=== PATIENT | male | born 1965 | race Caucasian/White ===

== ENCOUNTER → 2017-06-19 | Outpatient (CLI) | payer OTHER | END | disposition home or self-care (01) | LOC: LAB 13:55 → LAB SHORT 13:55 | DX: C44.612 Basal cell carcinoma of skin of right upper limb, including shoulder (principal); C44.519 Basal cell carcinoma of skin of other part of trunk | CPT/HCPCS: 88305 ==

== ENCOUNTER 2019-02-22 07:25 | Emergency (ER) | payer OTHER ==
[~2019-02-22] VITALS: Ht 177.8 cm; Wt 79.4 kg
[2019-02-22] MEDS ORDERED: Aspir 8181 MG PO (07:42)
[2019-02-22 08:08] LABS: BASOPHILS ABSOLUTE AUTO 0.03 K/mm3 (0.00-0.23); BASOPHILS PERCENT AUTO 0 % (0-2); EOSINOPHILS ABSOLUTE AUTO 0.13 K/mm3 (0.00-0.68); EOSINOPHILS PERCENT AUTO 2 % (0-6); Hematocrit 40.3 % (37.0-53.0); Hemoglobin 13.5 g/dL (13.5-17.5); IMMATURE GRAN ABSOLUTE AUTO 0.02 K/mm3 (0.00-0.10); IMMATURE GRAN PERCENT AUTO 0 % (0-1); LYMPHOCYTES ABSOLUTE AUTO 1.86 K/mm3 (0.84-5.20); LYMPHOCYTES PERCENT AUTO 21 % (21-46); MONOCYTES ABSOLUTE AUTO 0.58 K/mm3 (0.16-1.47); MONOCYTES PERCENT AUTO 7 % (4-13); Mean Corpuscular HGB 30.3 pg (26.0-34.0); Mean Corpuscular HGB Conc 33.5 g/dL (31.5-36.5); Mean Corpuscular Volume 91 fL (80-100); Mean Platelet Volume 10.9 fL (9.1-12.4); NEUTROPHILS ABSOLUTE AUTO 6.14 K/mm3 (1.96-9.15); NEUTROPHILS PERCENT AUTO 70 % (41-73); Platelet Count 265 K/mm3 (150-400); RDW Coefficient Variation 13.1 % (11.7-14.2); RDW Standard Deviation 43.6 fL (35.1-46.3); Red Blood Cell Count 4.45 M/mm3 (4.30-5.90); White Blood Cell Count 8.76 K/mm3 (4.00-11.30)
[2019-02-22 08:32] LABS: Alanine Aminotransfer (ALT/SGP 15 U/L (12-78); Albumin, Blood 3.8 g/dL (3.4-5.0); Albumin/Globulin Ratio 1.4 (0.8-1.8); Alk Phos 58 U/L (50-136); Anion Gap 1 mmol/L (6-16); Aspartate Aminotrans (AST/SGOT 14 U/L (12-37); Bilirubin, Total 0.1 mg/dL (0.1-1.0); Blood Urea Nitrogen 17 mg/dL (8-24); Bun/Creatinine Ratio 18.7 (12.0-20.0); CO2, Blood 27 mmol/L (21-32); Calcium, Blood 8.6 mg/dL (8.5-10.1); Chloride, Blood 111 mmol/L (98-108); Creatinine, Blood 0.91 mg/dL (0.60-1.20); Globulin, Blood 2.7 g/dL (2.2-4.0); Glomerular Filtration Rate >60 (60-); Glucose, Blood 111 mg/dL (70-99); Potassium, Blood 4.1 mmol/L (3.5-5.5); Sodium, Blood 139 mmol/L (136-145); Total Protein, Blood 6.5 g/dL (6.4-8.2); Troponin I <0.015 ng/mL (0.000-0.040)
[2019-02-22] MEDS ORDERED: ATOR20 PO (10:24)
[2019-02-22] MEDS ORDERED: Isosorbide Mono30 MG PO (10:24)
[2019-02-22] MEDS ORDERED: LISI20 PO (10:24)
[2019-02-22] MEDS ORDERED: MIRT30ST PO (10:25)
[2019-02-22] MEDS ORDERED: METO25ER PO (10:25)
== END 2019-02-22 11:52 | disposition home or self-care (01) ==
LOC: ER 07:25
PROVIDERS: Emergency Medicine
DX: R07.9 Chest pain, unspecified (principal); Z79.82 Long term (current) use of aspirin; Z79.899 Other long term (current) drug therapy
CPT/HCPCS: 36415; 71046; 80053; 83690; 84484; 85025; 93005; 93010; 99285-25

== ENCOUNTER 2019-03-02 17:48 | Emergency (ER) | payer OTHER ==
[~2019-03-02] VITALS: Ht 175.3 cm; Wt 76.2 kg
[~2019-03-02 17:48] MED LIST: ATOR20 PO; Aspir 8181 MG PO; Isosorbide Mono30 MG PO; LISI20 PO; METO25ER PO; MIRT30ST PO
[2019-03-02 18:28] LABS: BASOPHILS ABSOLUTE AUTO 0.03 K/mm3 (0.00-0.23); BASOPHILS PERCENT AUTO 0 % (0-2); EOSINOPHILS ABSOLUTE AUTO 0.06 K/mm3 (0.00-0.68); EOSINOPHILS PERCENT AUTO 1 % (0-6); Hematocrit 42.4 % (37.0-53.0); Hemoglobin 14.2 g/dL (13.5-17.5); IMMATURE GRAN ABSOLUTE AUTO 0.03 K/mm3 (0.00-0.10); IMMATURE GRAN PERCENT AUTO 0 % (0-1); LYMPHOCYTES ABSOLUTE AUTO 2.35 K/mm3 (0.84-5.20); LYMPHOCYTES PERCENT AUTO 24 % (21-46); MONOCYTES ABSOLUTE AUTO 0.74 K/mm3 (0.16-1.47); MONOCYTES PERCENT AUTO 8 % (4-13); Mean Corpuscular HGB 30.8 pg (26.0-34.0); Mean Corpuscular HGB Conc 33.5 g/dL (31.5-36.5); Mean Corpuscular Volume 92 fL (80-100); Mean Platelet Volume 10.9 fL (9.1-12.4); NEUTROPHILS ABSOLUTE AUTO 6.54 K/mm3 (1.96-9.15); NEUTROPHILS PERCENT AUTO 67 % (41-73); Platelet Count 276 K/mm3 (150-400); RDW Coefficient Variation 13.1 % (11.7-14.2); RDW Standard Deviation 44.3 fL (35.1-46.3); Red Blood Cell Count 4.61 M/mm3 (4.30-5.90); White Blood Cell Count 9.75 K/mm3 (4.00-11.30)
[2019-03-02 18:52] LABS: Alanine Aminotransfer (ALT/SGP 19 U/L (12-78); Albumin, Blood 4.1 g/dL (3.4-5.0); Albumin/Globulin Ratio 1.5 (0.8-1.8); Alk Phos 64 U/L (50-136); Anion Gap 5 mmol/L (6-16); Aspartate Aminotrans (AST/SGOT 13 U/L (12-37); Bilirubin, Total 0.3 mg/dL (0.1-1.0); Blood Urea Nitrogen 23 mg/dL (8-24); Bun/Creatinine Ratio 21.1 (12.0-20.0); CO2, Blood 25 mmol/L (21-32); Calcium, Blood 8.6 mg/dL (8.5-10.1); Chloride, Blood 109 mmol/L (98-108); Creatinine, Blood 1.09 mg/dL (0.60-1.20); Globulin, Blood 2.7 g/dL (2.2-4.0); Glomerular Filtration Rate >60 (60-); Glucose, Blood 102 mg/dL (70-99); Potassium, Blood 4.2 mmol/L (3.5-5.5); Sodium, Blood 139 mmol/L (136-145); Total Protein, Blood 6.8 g/dL (6.4-8.2); Troponin I <0.015 ng/mL (0.000-0.040)
== END 2019-03-02 22:49 | disposition home or self-care (01) ==
LOC: ER 17:48
PROVIDERS: Physician Assistant
DX: R07.9 Chest pain, unspecified (principal); M79.601 Pain in right arm; I25.10 Atherosclerotic heart disease of native coronary artery without angina pectoris; I10 Essential (primary) hypertension; F17.200 Nicotine dependence, unspecified, uncomplicated; Z79.899 Other long term (current) drug therapy; Z79.82 Long term (current) use of aspirin
CPT/HCPCS: 36415; 71046; 80053; 84484; 85025; 93005; 93010; 99285-25

== ENCOUNTER 2019-03-05 00:15 | Observation (INO) | payer OTHER ==
[~2019-03-05] VITALS: Ht 175.3 cm; Wt 76.7 kg
[2019-03-05 00:48] LABS: BASOPHILS ABSOLUTE AUTO 0.04 K/mm3 (0.00-0.23); BASOPHILS PERCENT AUTO 0 % (0-2); EOSINOPHILS ABSOLUTE AUTO 0.11 K/mm3 (0.00-0.68); EOSINOPHILS PERCENT AUTO 1 % (0-6); IMMATURE GRAN ABSOLUTE AUTO 0.02 K/mm3 (0.00-0.10); IMMATURE GRAN PERCENT AUTO 0 % (0-1); LYMPHOCYTES ABSOLUTE AUTO 3.08 K/mm3 (0.84-5.20); LYMPHOCYTES PERCENT AUTO 31 % (21-46); MONOCYTES ABSOLUTE AUTO 0.79 K/mm3 (0.16-1.47); MONOCYTES PERCENT AUTO 8 % (4-13); Mean Corpuscular HGB 30.8 pg (26.0-34.0); Mean Corpuscular HGB Conc 34.1 g/dL (31.5-36.5); Mean Corpuscular Volume 90 fL (80-100); Mean Platelet Volume 10.6 fL (9.1-12.4); NEUTROPHILS ABSOLUTE AUTO 5.95 K/mm3 (1.96-9.15); NEUTROPHILS PERCENT AUTO 60 % (41-73); Platelet Count 284 K/mm3 (150-400); RDW Coefficient Variation 12.7 % (11.7-14.2); RDW Standard Deviation 42.2 fL (35.1-46.3); Red Blood Cell Count 4.87 M/mm3 (4.30-5.90); White Blood Cell Count 9.99 K/mm3 (4.00-11.30)
[2019-03-05 01:10] LABS: Alanine Aminotransfer (ALT/SGP 17 U/L (12-78); Albumin, Blood 4.3 g/dL (3.4-5.0); Albumin/Globulin Ratio 1.3 (0.8-1.8); Alk Phos 72 U/L (50-136); Anion Gap 8 mmol/L (6-16); Aspartate Aminotrans (AST/SGOT 15 U/L (12-37); Bilirubin, Total 0.6 mg/dL (0.1-1.0); Blood Urea Nitrogen 20 mg/dL (8-24); CO2, Blood 24 mmol/L (21-32); Calcium, Blood 8.9 mg/dL (8.5-10.1); Chloride, Blood 107 mmol/L (98-108); Creatinine, Blood 1.05 mg/dL (0.60-1.20); Globulin, Blood 3.2 g/dL (2.2-4.0); Glomerular Filtration Rate >60 (60-); Glucose, Blood 95 mg/dL (70-99); Potassium, Blood 4.1 mmol/L (3.5-5.5); Sodium, Blood 139 mmol/L (136-145); Total Protein, Blood 7.5 g/dL (6.4-8.2); Troponin I <0.015 ng/mL (0.000-0.040)
--- NOTE | 2019-03-05 05:55 | NUR ---
SHIFT SUMMARY/ADMISSION NOTE PT ARRIVED TO UNIT VIA GURNEY AND AMBULATES INDEPENDENTLY TO BED. PT IS A&OX4, ADMITTED FOR CP EARLIER IN DAY. PT REPORTS CP HAS BEEN OCCURING INTERMITTENTLY FOR SEVERAL MONTHS. PAIN IS DESCRIBED AN "ACHEY FEELING" TO THE L CHEST, CAUSING DIAPHORESIS AND SOB. PT TO HAVE HEART CATH PLACED PER DR ORTA, CONSULT CALLED. NPO TONIGHT. NEG TROPONIN, EKG WNL. TELE IN PLACE; SINUS JANE @ 55 BPM PER MOLD TOOLING TECHNICIAN MITCHEL. NO OTHER CHANGES TO REPORT. WILL CONT TO MONITOR AND PROVIDE CARE UNTIL PRESUMED BY ONCOMING RN.
--- NOTE | 2019-03-05 08:27 | NUR ---
PATIENT DID NOT EAT BREAKFAST THIS SHIFT DUE TO BEING NPO AT THIS TIME.
--- NOTE | 2019-03-05 13:31 | NUR ---
Echocardiogram completed.
--- NOTE | 2019-03-05 13:38 | NUR ---
PATIENT DID NOT EAT LUNCH THIS SHIFT DUE TO BEING NPO AT THIS TIME.
--- NOTE | 2019-03-05 18:35 | NUR ---
SHIFT SUMMARY PATIENT A&0 X4, TALKATIVE AND COOPERTIVE WITH CARE. VSS, NSR ON TELE. DENIES SOB OR DIAPHORESIS BUT STATES HE HAS PALPITATIONS AND INTERMITTENT MODERATE RADIATING STABBING L CHEST PAIN, IT IS TOLERABLE AND NOT GETTING WORSE THOUGH. HE ALSO C/O OF A HEADACHE, TYLENOL GIVEN WITH SOME RELIEF. LUNGS CTA. PT INDEPENDENT IN ROOM. IN ROOM MOST OF DAY. DR ORTA SPOKE WITH PATIENT TODAY. [facility] CALLED THIS AFTERNOON AND STATED THE PATIENT'S PROCEDURE WILL HAVE TO BE PUSHED TO TOMORROW. REGULAR DIET ORDERED FOR TONIGHT, WILL BE NPO AT MIDNIGHT.
--- NOTE | 2019-03-05 18:42 | NUR ---
Spiritual Care inital visit: Met with Sp and his SO, Marisel at bedside. Lengthy visit as both detailed for me their history of homelessness. They [place] lived[place] in [place] in [place] along [place] [facility] [place]. Recently, both found hope and peace through a shinto community. For the past 2 years, their life has improved. Sp is now recieving SSD benefits and Marisel is working part-time. They have also found housing. Facilitated life review and exploration of naila in the midst of suffering. Both pt and spouse responded well to prayer and gentle veterans' counselor. Sp admits to feeling nervous about upcoming proceedure. Assured his of excellent care and attention. [facility] will remain available.
--- NOTE | 2019-03-06 05:16 | NUR ---
SHIFT SUMMARY PT REPORTS HAVING CONSTANT, DULL CHEST PAIN TO THE L CHEST. DOES NOT RADIATE. IS NO ALLEVIATED OR WORSENED BY ANYTHING. DOES NOT WORSEN WITH BREATHING, AND PT IS NOT DIAPHORETIC. PT REPORTS THIS PAIN HAS BEEN PRESENT SINCE SUMMER. PT NPO SINCE MIDNIGHT FOR L HEART CATH PER DR ORTA. TELE IN PLACE, NO EVENTS, NSR @ 70 BPM. WILL CONT TO MONITOR AND PROVIDE CARE UNTIL PRESUMED BY ONCOMING RN.
--- NOTE | 2019-03-06 09:40 | NUR ---
TRANSFER PATIENT TAKEN FROM ROOM BY SURGICAL STAFF AT 0855. BLOOD CONSENT SIGNED. NO CHANGE IN PATIENT'S CONDITION. PT GIVEN SIPS OF WATER WITH ASPIRIN AND LISINOPRIL. ALL PT BELONGINGS REMOVED FROM ROOM BY SIGNIFICANT OTHER. BROADCAST OPERATIONS TECHNICIAN NOTIFIED.
--- NOTE | 2019-03-06 10:15 | NUR ---
PT TO ROOM 1 FROM [facility]. BEDSIDE REPORT RECEIVED FROM [facility] STAFF. IVF STARTED TO 20G IN R AC. PRESSURE DEVICE TO RIGHT RADIAL AREA. TELE IN PLACE. PT ALERT AND ORIENTED. NO STENTS PLACED. PT DENIES CP, DENIES SOB.
--- NOTE | 2019-03-06 11:26 | NUR ---
DR COPPOLATRATE AT BEDSIDE.
--- NOTE | 2019-03-06 12:15 | NUR ---
TR BAND DEFLATED 2ML. PT FAITH WELL.
--- NOTE | 2019-03-06 14:34 | NUR ---
TR band is fully deflated. There is no bleeding, no evidence of hematoma, and the pt denies any pain or discomfort. TR band left in place, white immobilizer board is in place. Good cap refill and good spo2 measured on the index finger of the right hand.
[2019-03-06] MEDS ORDERED: ACET325 PO (15:50)
[2019-03-06] MEDS ORDERED: MIRALAX17 GM PO (15:51)
--- NOTE | 2019-03-06 16:25 | NUR ---
PT DC REVIEWED. TELE REMOVED. PT GETTING DRESSED. RIDE TO REPORT CLERK PT WILL BE HERE AT APPROX 1700.
--- NOTE | 2019-03-06 16:50 | NUR ---
IV REMOVED. DRESSING PLACED. SLING PLACED. PT HAS NO QUESTIONS RE DC. ASSISTED INTO FOR DC.
== END 2019-03-06 16:53 | disposition home or self-care (01) ==
LOC: ER 00:15 → MEDS 00:16 → ERHOLD 00:16 → MEDS 04:14 → PCU 03-06 10:18
PROVIDERS: Emergency Medicine; ADMIT Hospitalist
DX: I25.119 Atherosclerotic heart disease of native coronary artery with unspecified angina pectoris (principal); I07.1 Rheumatic tricuspid insufficiency; R00.2 Palpitations; I10 Essential (primary) hypertension; E78.5 Hyperlipidemia, unspecified; J45.909 Unspecified asthma, uncomplicated; C44.91 Basal cell carcinoma of skin, unspecified; G43.909 Migraine, unspecified, not intractable, without status migrainosus; F32.9 Major depressive disorder, single episode, unspecified; F41.9 Anxiety disorder, unspecified; Z79.899 Other long term (current) drug therapy; Z79.82 Long term (current) use of aspirin
CPT/HCPCS: 36415; 71046; 80053; 83690; 83880; 84484; 85025; 93005; 93010; 93308; 93321; 93454; 99152; 99153; 99285-25; A9270; C1769; C1894; G0378; J1644; J1650; J2250; J3010; J7030; Q9967

== ENCOUNTER 2020-07-07 08:09 | Day surgery (SDC) | payer OTHER ==
[~2020-07-07] VITALS: Ht 177.8 cm; Wt 70.1 kg
[~2020-07-07 08:09] MED LIST changes: +ACET325 PO; +MIRALAX17 GM PO
--- NOTE | 2020-07-07 09:32 | NUR ---
Ambulatory in Day Surgery Patient states colon prep results clear. History, Chart, Medications and Allergies reviewed before start of procedure. Lungs clear T/O to Auscultation. Patient confirms NPO status and agrees with scheduled surgery. PT REPORTS DR. GANT APPROVED PT TO GO HOME VIA TAXI, TO [place]. UNABLE TO DRIVE.
--- NOTE | 2020-07-07 10:45 | NUR ---
07/07/20 1045 Azra Gregory PATIENT DETERMINED TO BE ASA APPROPRIATE FOR PROPOFOL SEDATION PRIOR TO START OF PROCEDURE BY DR. GANT. 3-LEAD EKG REVIEWED WITH PHYSICIAN PRIOR TO START OF PROCEDURE. PATIENT CONFIRMS NPO STATUS AND AGREES WITH SCHEDULED PROCEDURE. History, Chart, Medications and Allergies reviewed before start of procedure. MONITOR INTACT WITH CONTINUOUS PULSE OXIMETRY AND INTERMITTENT BP. O2 VIA N/C INTACT THROUGHOUT SEDATION/PROCEDURE.
--- NOTE | 2020-07-07 12:00 | NUR ---
Patient up to Ambulate independently. Gait steady. Discharge instructions reviewed with patient. Patient verbalizes understanding. Copy given to patient to take home. Discharged via wheelchair to private car for ride home. DR. ALFREDA yepez pt to go home via taxi. ORDER WRITTEN AND SIGNED.
== END 2020-07-07 12:00 | disposition home or self-care (01) ==
LOC: ORSCMMR 08:09 → ORD 09:30 → ORSCMMR 09:30
PROVIDERS: Internal Medicine Gastroenterology
PROC: 0DBN8ZX Excision of Sigmoid Colon, Via Natural or Artificial Opening Endoscopic, Diagnostic (ICD-10-PCS; principal; 2020-07-07 09:30)
DX: K62.5 Hemorrhage of anus and rectum (principal); K63.5 Polyp of colon; Z80.0 Family history of malignant neoplasm of digestive organs; K64.8 Other hemorrhoids; I10 Essential (primary) hypertension; F32.9 Major depressive disorder, single episode, unspecified; Z79.899 Other long term (current) drug therapy
CPT/HCPCS: 88305; J2250; J2704; J7120

== ENCOUNTER → 2020-08-19 | Outpatient (CLI) | payer OTHER | END | disposition home or self-care (01) | LOC: LAB 15:02 → LAB SHORT 15:02 | DX: R30.0 Dysuria (principal) | CPT/HCPCS: 87086 ==

== ENCOUNTER → 2021-11-14 | Outpatient (CLI) | payer OTHER | END | disposition home or self-care (01) | LOC: LAB SHORT 14:40 → PLD 14:40 | DX: C44.519 Basal cell carcinoma of skin of other part of trunk (principal); C44.529 Squamous cell carcinoma of skin of other part of trunk; C44.619 Basal cell carcinoma of skin of left upper limb, including shoulder | CPT/HCPCS: 88305 ==

== ENCOUNTER → 2022-01-03 | Outpatient (CLI) | payer OTHER | END | disposition home or self-care (01) | LOC: PLD 15:09 → LAB SHORT 15:09 | DX: C44.529 Squamous cell carcinoma of skin of other part of trunk (principal) | CPT/HCPCS: 88305 ==

== ENCOUNTER → 2022-01-24 | Outpatient (CLI) | payer OTHER | END | disposition home or self-care (01) | LOC: LAB SHORT 10:11 → LAB 10:11 | DX: L72.3 Sebaceous cyst (principal) | CPT/HCPCS: 87070; 87075; 87205; 88304 ==